=== PATIENT | female | born 1985 | race Caucasian/White ===

== ENCOUNTER 2021-07-16 16:17 | Emergency (ER) | payer OTHER, SELFPAY ==
[2021-07-16 17:16] VITALS: BP 135/78; PULSE 80; RESP 18; TEMP 36.6; O2SAT 99; BMI 30.1
--- NOTE | 2021-07-16 18:44 | ED_ITS ---
HPI - Asthma General Chief Complaint: Asthma Stated Complaint: Dehydration Time Seen by Provider: 07/16/21 18:44 Source: patient Mode of arrival: ambulatory Limitations: no limitations History of Present Illness HPI Narrative: This is a 36-year-old female past medical history significant for asthma presents to the emergency department requesting an albuterol treatment and thinking that she is dehydrated. She tells me that she was convicted from her home, she no longer has her nebulizer, she tells me she is feeling like she needs it. But she tells me she is not short of breath or wheezing. Asthma has never required intubation. Patient also tells me that her urine was dark so she thinks she is dehydrated. She tells me she is currently being treated for yeast infection. Patient has no other complaints at this time MD complaint: other (wheezing ) Onset (ago): day(s) (1) Severity: moderate Context: none known Associated symptoms: none Asthma History: adult onset Related Data Allergies Allergy/AdvReac Type Severity Reaction Status Date / Time tramadol [TRAMADOL] Allergy Intermediate RASH Unverified 03/22/20 16:12 Review of Systems Review of Systems: Constitutional : No Weight loss, No Fever, No Chills, No Fatigue, No Malaise ENT/Mouth : No sore throat, No Rhinorrhea Eyes: No Eye Pain, No Swelling, No Redness Cardiovascular : No Chest Pain, No SOB, No Dyspnea on Exertion, No Orthopnea, No Edema, No Palpitations Respiratory : No Cough, No Sputum, No Wheezing Gastrointestinal : No Nausea, No Vomiting, No Diarrhea, No Constipation, No abdominal Pain, No Hematochezia, No Melena Genitourinary : No Dysuria, No Urinary Frequency, No Hematuria, Musculoskeletal : No joint pain, No Myalgias, No Joint Swelling Skin : No Skin Lesions, No rash Neuro : No Weakness, No Numbness, No Dizziness, No Headache All other systems reviewed and are negative PMFSH Past Medical History Attestation statement: The following information was validated with the patient. Source: old records reviewed and nursing notes reviewed Social History Social History Advance Directives: No Advance Directives Information Provided: Yes Patient : No Physical Exam Vital Signs: Vital Signs: Last Vital Signs Temp 97.8 F 07/16/21 17:16 Pulse 80 07/16/21 17:16 Resp 18 07/16/21 17:16 BP 135/78 07/16/21 17:16 Pulse Ox 99 07/16/21 17:16 BMI result Body Mass Index 30.1 VSS Appearance: Alert.? Oriented X3.? No acute distress.? Breathing is unlabored, no use of accessory muscles. Head: Normocephalic, atraumatic, no step-offs or deformities Eyes: Pupils equal, round and reactive to light.? ENT: Pharynx normal.? Neck: Normal inspection.? Neck supple.? CVS: Normal heart rate and rhythm.? Pulses normal.? Respiratory: No respiratory distress.? Breath sounds normal.? Abdomen: Soft and nontender.? Skin: Skin warm and dry.? Normal skin color.? Normal skin turgor.? Extremities: No lower extremity edema.? No calf ttp. 5/5 strength to bilateral upper and lower extremities Back: No midline tenderness, no C-spine tenderness, full range of motion, no CVA tenderness bilaterally Neuro: Oriented X 3.? No motor deficit.? No sensory deficit. Course Reevaluation(s) Reevaluation #1: Patient COVID +. I have educated her on her diagnosis, answered all questions. Her urine is clean, no signs of dehydration. At this time I feel comfortable discharge home, patient's vital signs are stable. I have given her strict return precautions and have outlined them on her discharge. Time: 19:33 MDM - Asthma MDM Narrative Medical decision making narrative: 1848 36 yo F pmhx asthma presents to ed requesting an albuterol tx and stating she is dehydrated becuase her urine is drink. Tollerating PO fluids. Not vaccinated against covid Physical examination benign. Vital signs are stable, patient is saturating well on room air. Plan at this time is to obtain a UA. Medical Records Attestation: I reviewed the patient's medical records. Lab Data Attestation: I reviewed the patient's lab results. Labs: Lab Results 07/16/21 07/16/21 Range/Units 19:00 19:10 Urine Color YELLOW Urine Appearance HAZY Urine pH 6.5 (5.0-8.0) Ur Specific [place] 1.020 (1.005-1.025) Urine Protein NEG (NEG-TRACE) MG/DL Urine Glucose (UA) NEG (NEG) MG/DL Urine Ketones NEG (NEG) MG/DL Urine Blood NEG (NEG) Urine Nitrite NEG (NEG) Ur Leukocyte Esterase 1+ H (NEG) Urine RBC 0-2 (0) /HPF Urine WBC 5-9 H (0-4) /HPF Ur Squamous Epith Cells 3+ /LPF Amorphous Sediment 1+ /LPF Urine Bacteria TRACE /LPF Urine Mucus 1+ /LPF COVID-19 (JOSEPHINE) Positive A (Negative) COVID-19 Clin Com See Note Critical Care Time Critical Care Time Critical Care Time: No Discharge Plan Discharge Clinical Impression: COVID-19 Patient Disposition: Home, Self-Care Instructions: COVID-19 (Coronavirus Disease 2019) (ED) Additional Instructions: Take your medications as prescribed. If you were prescribed antibiotics today, it is important that you take your medication to their entirety, do not skip any doses, do not finish them early. Today you tested positive for COVID-19. Take Ibuprofen or Tylenol as needed for fevers or body aches. Quarantine for 7 days and ensure you wear a mask. After 7 days you should wear a mask for 3 days after that. Practice social distancing and good hand hygiene. Drink plenty of fluids. Follow-up with your primary care provider this week. Return to the emergency department with new or worsening symptoms. That his chest pain, shortness of breath, fevers, chills, nausea, vomiting. In case of emergency call 911 Your urine showed no signs of infection, no dehydration. You can purchase a pulse oximeter from your local pharmacy or grocery store, and monitor your oxygen saturation if it goes below 94% you should return to the emergency department for further evaluation. If You Test Positive for COVID-19 (Isolate) Everyone, regardless of vaccination status. * Stay home for 5 days. * If you have no symptoms or your symptoms are resolving after 5 days, you can leave your house. * Continue to wear a mask around others for 5 additional days. If you have a fever, continue to stay home until your fever resolves. If You Were Exposed to Someone with COVID-19 (Quarantine) If you: Have been boosted OR Completed the primary series of Pfizer or Moderna vaccine within the last 6 months OR Completed the primary series of J&J vaccine within the last 2 months * Wear a mask around others for 10 days. * Test on day 5, if possible. If you develop symptoms get a test and stay home. If you: Completed the primary series of Pfizer or Moderna vaccine over 6?months ago and are not boosted OR Completed the primary series of J&J over 2 months ago and are not boosted OR Are unvaccinated * Stay home for 5 days. After that continue to wear a mask around others for 5 additional days. * If you can?t quarantine you must wear a mask for 10 days. * Test on day 5 if possible. If you develop symptoms get a test and stay home Referrals: PhysicianPriscila [Primary Care Provider] - 2 days Stand Alone Forms: Work/School Release
[2021-07-16 19:15] LABS: COVID-19 Test Positive (Negative)
[2021-07-16 19:17] LABS: Appearance Urine HAZY; Color Urine YELLOW; Glucose Urine UA NEG (NEG); Leukocyte Esterase Urine 1+ (NEG); Nitrite Urine NEG (NEG); PH 6.5 (5.0-8.0); UACC Culture Trigger YES; Urine Blood NEG (NEG); Urine Ketones NEG (NEG); Urine Protein NEG (NEG-TRACE)
[2021-07-16 19:25] LABS: Amorphous Sediment Urine 1+ /LPF; Squamous Epithelial Cell Urine 3+ /LPF
[2021-07-16 19:26] LABS: Bacteria Urine TRACE /LPF; Mucus Urine 1+ /LPF; RBC Urine 0-2 /HPF (0); UACC CULT YES
== END 2021-07-16 20:05 | disposition home or self-care (01) ==
PROVIDERS: Physician Assistant; Emergency Provider Emergency Medicine
DX: U07.1 COVID-19 (principal); Z79.899 Other long term (current) drug therapy
CPT/HCPCS: 81001; 87086; 87635; 99283; 99284

== ENCOUNTER 2022-08-10 13:09 | Emergency (ER) | payer OTHER, SELFPAY ==
--- NOTE | 2022-08-10 13:23 | ED.UPPEXIN ---
HPI - Extremity Injury (Upper) General Chief Complaint: Dizziness Stated Complaint: possible bolivar bite on fingers. feeling dehydtrate Related Data Allergies Allergy/AdvReac Type Severity Reaction Status Date / Time tramadol [TRAMADOL] Allergy Intermediate RASH Unverified 03/22/20 16:12 [facility] [place] Social History Social History Advance Directives: No Advance Directives Information Provided: No Physical Exam Vital Signs: Vital Signs: Last Vital Signs Temp 97.3 F 08/10/22 13:24 Pulse 90 08/10/22 13:24 Resp 16 08/10/22 13:24 BP 121/78 08/10/22 13:24 Pulse Ox 98 08/10/22 13:24 O2 Del Method 08/10/22 13:24 BMI result Body Mass Index 30.9 Course Course Course Narrative: RME-- 37-year-old female with no significant past medical history presenting to the ED c/o L 2nd & 3rd digit ?bolivar bite with assoc stiffness and tingling. States walked home from work and hands were extremely cold and red, admits sx resolved in other areas minus the 2 digits. Also reports acute on chronic dizziness and feeling dehydrated. Hand/digits warm, FROM intact, NV intact, ambulating w/steady gait EKG, labs ordered Discharge Plan Discharge Clinical Impression: Hand paresthesia Patient Disposition: Elopement Interventions: ED Discharge Assessment Last Done: 08/10/22 16:35 Discharge Date/Time: 08/10/22 16:36
[2022-08-10 13:24] VITALS: BP 121/78; PULSE 90; RESP 16; TEMP 36.3; O2SAT 98; BMI 30.9
--- NOTE | 2022-08-10 13:49 | PC.NURSE ---
call for ekg at 1349 not in wr per pct
== END 2022-08-10 16:36 | disposition left against medical advice (07) ==
PROVIDERS: Emergency Provider Emergency Medicine
DX: R42 Dizziness and giddiness (principal); R20.2 Paresthesia of skin
CPT/HCPCS: 99282